=== PATIENT | male | born 1970 | race African-American/Black ===

== ENCOUNTER 2017-05-19 01:48 | Emergency (ER) | payer BC ==
[~2017-05-19] VITALS: Ht 177.8 cm; Wt 83.9 kg
[2017-05-19 02:00] VITALS: BP_SYST 106
[2017-05-19] MEDS ORDERED: HYDROcodone/ACETAMIN 10-325 MG TAB PO ONE (03:00)
[2017-05-19 06:15] VITALS: BP_SYST 112
== END 2017-05-19 06:15 | disposition home or self-care (01) ==
LOC: SED 01:48
DX: S76.012A Strain of muscle, fascia and tendon of left hip, initial encounter (principal); S76.912A Strain of unspecified muscles, fascia and tendons at thigh level, left thigh, initial encounter; E11.9 Type 2 diabetes mellitus without complications; X58.XXXA Exposure to other specified factors, initial encounter; Y93.89 Activity, other specified; Y92.89 Other specified places as the place of occurrence of the external cause; Y99.8 Other external cause status
CPT/HCPCS: 72192-TC; 73502; 99284